=== PATIENT | female | born 1940 | race Caucasian/White ===

== ENCOUNTER 2016-11-12 04:18 | Inpatient (IN) | payer OTHER ==
--- NOTE | ~2016-11-12 | HP ---
Unit #: [id number] #: [id number] Patient: ZBIGNIEW TEJEDA [id number] [address] [address] [id number] I MR#: [id number] NAME: ZBIGNIEW TEJEDA. ROOM: 331 Age: 76 Sex: F Admission Date: 11/12/2016 : 1940 Attending Physician: Priyanka Tidwell M.D. Primary Care Physician: Lexii Garcia M.D. HISTORY AND PHYSICAL CHIEF COMPLAINT Shortness of breath. HISTORY OF PRESENT ILLNESS The patient is a 76-year-old female with a past medical history of COPD, breast cancer, hypothyroidism, hypertension, brought to the emergency room complaining of worsening shortness of breath. The patient also complains of nonproductive cough since Thursday associated with chest pressure. The patient stated that the patient had COPD from secondhand smoke and is not on any nebulizer at home. The patient also complains of subjective fevers and nausea. The patient denies any chest pain, palpitation, dizziness or abdominal pain. The patient is being admitted for COPD exacerbation. The patient was found to be hypoxic with the oxygen saturation of 88% on room air by ER physician. PAST MEDICAL HISTORY History of breast cancer, hypothyroidism, hypertension, gastroesophageal reflux disease. PAST SURGICAL HISTORY Umbilical hernia repair, left mastectomy, excision of the right breast areolar mass. SOCIAL HISTORY The patient denies history of smoking, alcohol or any illicit drug abuse. FAMILY HISTORY Reviewed and remarkable in the father of leukemia, mother of heart disease. ALLERGIES Latex. HOME MEDICATIONS 1. Synthroid. 2. Atenolol. 3. Tessalon Perles. 4. Diflucan. REVIEW OF SYSTEMS A 14-point review of systems was performed and only pertinent positive findings are described above. Remaining are negative. PHYSICAL EXAMINATION Unit #: [id number] #: [id number] Patient: ZBIGNIEW TEJEDA GENERAL APPEARANCE: The patient is lying on the bed, not in acute distress. VITAL SIGNS: Temperature 97.6. Pulse 66. Respiratory rate 16. Blood pressure 111/52. Sating 95% at room air. HEENT: Head: Atraumatic, normocephalic. Pupils equal, round and reacting to light and accommodation. Extraocular movements are intact. NECK: Supple. No JVD. LUNGS: Bilateral expiratory wheezing. HEART: Regular rate and rhythm. ABDOMEN: Soft. Positive bowel sounds. EXTREMITIES: No cyanosis. No clubbing. No pedal edema. NEUROLOGIC: Alert, awake, oriented. No gross focal motor deficit. DIAGNOSTIC STUDIES LABORATORY: Glucose 111, BUN 15, creatinine 0.7, sodium 130, potassium 3.5. It was 2.8 at admission. Chloride 98, bicarb 25, calcium 7.9, magnesium 1.5, albumin 3.2, AST 19, ALT 29, alkaline phosphatase 67. Amylase 35. BNP 89. D-dimer 274. WBC 16.3, hemoglobin 14.5, hematocrit 42.6, platelets 171, neutrophils 80.2. Flu screen is negative. IMAGING: Chest x-ray shows stable cardiomegaly with mild atelectasis in the right lung base, otherwise, no active disease. CARDIOVASCULAR: EKG shows normal sinus rhythm at a rate of 67 beats per minute, CO interval of 160, QTC of 414. ASSESSMENT AND PLAN 1. COPD exacerbation. 2. Hypokalemia. 3. Hypomagnesium. 4. Hypertension. PLAN To admit the patient to observation with telemetry. Continue with oxygen two liters and continue with the steroids, Solu-Medrol 40 mg q.8. The patient received prednisolone oral by mouth for unknown reason. Replace the electrolytes per protocol and further recommendations will follow. Dictated by Diallo Manning TD: 11/12/2016 12:25 JOB #: [id number] HISTORY AND PHYSICAL X X HISTORY AND PHYSICAL
--- NOTE | ~2016-11-12 | CT16 ---
[facility] A Service of [facility] & [facility] RADIOLOGY TEXT RESULTS PATIENT: ZBIGNIEW TEJEDA LOCATION: [facility] 225 : 42 UNIT #: [id number] AGE: [address]: Michelle Ni MD SEX: F ORDER DR: [id number] [facility] [address] [facility]. [place], [place] [address] [id number] I MR#: [id number] Acc #: [id number] NAME: ZBIGNIEW TEJEDA : 1940 SEX: F STUDY DATE/TIME: 11/14/2016 14:08 UNIT: [facility] ROOM: [facility] STUDY DESCRIPTION: CT Angio Chest for PE Attending Physician: Michelle Ni M.D. Ordering Physician: Michelle Ni M.D. Primary Care Physician: Lexii Garcia M.D. MEDICAL IMAGING REPORT This report is preliminary unless electronic signature is present EXAM CT scan of the chest with angiographic reconstructions of pulmonary artery, pulmonary embolus protocol. DATE OF EXAM 11/14/2016 INDICATION Shortness of breath and cough since November 08 with congestion. Evaluate for pulmonary embolus. TECHNIQUE The patient was given 100 mL of Isovue-370. Spiral imaging was performed through the chest and 3D reconstructions of the pulmonary arteries were generated. NOTE: This CT exam was performed with one or more of the following radiation dose reduction techniques: automatic exposure control, adjustment of mA and/or kV according to patient size, and iterative reconstruction. FINDINGS There is minimal infiltrate in the right upper lobe posteriorly, and also in the right middle lobe posteriorly, and there is some focal atelectasis in the right base. There is also some patchy infiltrate in the left base. Otherwise, the lungs are clear. The thyroid gland is normal. The aorta is normal in size and there is no dissection. Pulmonary arteries are adequately opacified and there is no CT evidence of pulmonary embolus. The visualized portions of the upper abdomen are normal, except for scarring in the right kidney. Motion affects the images through the lung bases. IMPRESSION 1. Motion degrades the images through the lung bases. No pulmonary embolus is visible. [facility] A Service of [facility] & [facility] RADIOLOGY TEXT RESULTS PATIENT: ZBIGNIEW TEJEDA LOCATION: [facility] 225- : 42 UNIT #: [id number] AGE: [address]: Michelle Ni MD SEX: F ORDER DR: 2. Faint patchy infiltrates right upper lobe posteriorly, right middle lobe laterally and posteriorly and both lower lobes with some minimal atelectasis in the right lower lobe. Dictated by... North Andres M.D. THIS IS AN ELECTRONICALLY VERIFIED REPORT North Andres M.D. at 11/15/2016 12:24 PM KAMILLE/lucy TD: 11/14/2016 22:18 JOB #: [id number] MEDICAL IMAGING REPORT COPY
--- NOTE | ~2016-11-12 | EKG ---
PATIENT: ZBIGNIEW TEJEDA UNIT #: [id number] Ventricular Rate: 67 BPM Atrial Rate: 67 BPM P-R Interval: 160 ms QRS Duration: 80 ms Q-T Interval: 392 ms QTC Calculation(Bezet): 414 ms P [place]: 50 degrees Calculated R [place]: -12 degrees Calculated T [place]: 62 degrees Diagnosis Line: Normal sinus rhythm Diagnosis Line: Normal ECG Diagnosis Line: No previous ECGs available Diagnosis Line: Confirmed by CARMELO HERNANDEZ MD ([id number]) on 11/13/2016 Diagnosis Line: 5:38:32 PM INTERPRETING MD: DAVID SANCHEZ
--- NOTE | ~2016-11-12 | CO ---
Unit #: [id number] #: [id number] Patient: ZBIGNIEW TEJEDA [id number] [facility]. [address] [place], [place] [address] [id number] I MR#: [id number] NAME: ZBIGNIEW TEJEDA ROOM: 225 Age: 76 Sex: F Admission Date: 11/12/2016 : 1940 Attending Physician: Michelle Ni M.D. Primary Care Physician: Lexii Garcia M.D. CONSULTATION REPORT HISTORY OF PRESENT ILLNESS Ms. Mueller is a 76-year-old white female with possible history of COPD, history of breast cancer status post left mastectomy, hypothyroidism, hypertension, who presented to the emergency room because of increased shortness of breath and worsening cough. She says she has been sick since 03/2016, she has received 4 courses of antibiotics with initial improvement of the course of cough and congestion, but then return of symptoms. This has been worse since 09/2016. She began to cough more over the last week and became more short of breath and presented here for admission. She denied any chest pain or palpitations. Cough has been fairly nonproductive. She is a lifelong nonsmoker, but her used to smoke heavily, although he a few years ago. Ms. Mueller has been seen by Dr. West in the past. In the emergency room when she was initially seen, her O2 saturation was 95% on room air, but in another notation it was 88%. She was given prednisone, Tussionex, and IV fluids. She was noted on exam to have frequent coughs. Her lab work was significant for normal creatinine, potassium of 2.8, magnesium of 1.5. Negative cardiac enzymes. D-dimer was 274. White count was 16,300, hematocrit was 42.6, platelet count was normal. Influenza A and B are negative. PAST MEDICAL HISTORY Breast cancer, status post left mastectomy; hypothyroidism; hypertension; gastroesophageal reflux; and some history of asthmatic bronchitis. PAST SURGICAL HISTORY Umbilical hernia repair, excision of right breast areolar mass, history of left mastectomy. ALLERGIES Latex. HOME MEDICATIONS Synthroid, atenolol, Tessalon Perles, and Diflucan. SOCIAL HISTORY Nonsmoker. No alcohol or illicit drugs. FAMILY HISTORY Father of leukemia. Mother, heart disease. REVIEW OF SYSTEMS Ten point, otherwise negative. Unit #: [id number] #: [id number] Patient: ZBIGNIEW TEJEDA PHYSICAL EXAMINATION GENERAL: White female, coughing, in no distress. VITAL SIGNS: Blood pressure is 156/91, pulse 89, respiratory rate 18, afebrile. HEENT: Normocephalic and atraumatic. Pupils are equal, round, and reactive. Sclerae nonicteric. Nasal passages patent. Posterior pharynx clear. Mucous membranes moist. NECK: Supple. Trachea midline. No cervical or supraclavicular lymphadenopathy. LUNGS: Reveal some crackles in the right base. CARDIAC: Heart sounds distant. Regular rate and rhythm. Could not appreciate murmur, rub, or gallop. ABDOMEN: Nontender. Bowel sounds present. No hepatosplenomegaly. EXTREMITIES: Without clubbing, cyanosis, or edema. NEUROLOGIC: Awake, alert, and oriented x3. Cranial nerves grossly intact. Muscle strength symmetric bilaterally. Affect calm. DIAGNOSTIC STUDIES LABORATORY RESULTS: As noted. Personally reviewed. IMAGING STUDIES: Chest CT reviewed, no pulmonary embolus, does appear to be some tree-in-bud abnormalities in the right upper lobe and some atelectasis and infiltrate in the bases. IMPRESSION 1. Acute hypoxemic respiratory failure. 2. Tree-in-bud pattern with infiltrate and atelectasis possible pneumonia. 3. Apparent possible asthma or chronic obstructive pulmonary disease. 4. Gastroesophageal reflux disease. 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 PLAN Broad-spectrum antibiotics for possible community-acquired pneumonia. Bronchodilator treatment. We will check procalcitonin level. Further recommendations pending this. Dictated by... Diallo Crowe/ozzy TD: 11/14/2016 21:33 JOB #: [id number] CONSULTATION REPORT X Lorenzo Brandt MD X CONSULTATION REPORT
--- NOTE | ~2016-11-12 | CR63 ---
[facility] A Service of [facility] & [facility] / [facility] RADIOLOGY TEXT RESULTS PATIENT: ZBIGNIEW TEJEDA LOCATION: [facility] 331- : 42 UNIT #: [id number] AGE: [address]: FADY TIDWELL MD SEX: F ORDER DR: [id number] [facility] [address] [facility] [place], [place] [address] [id number] I MR#: [id number] Acc #: [id number] NAME: ZBIGNIEW TEJEDA. : 1940 SEX: F STUDY DATE/TIME: 11/12/2016 05:06 UNIT: [facility] ROOM: [id number] STUDY DESCRIPTION: CR Chest 2 View Attending Physician: Fady Tidwell M.D. Ordering Physician: Frank George M.D. Primary Care Physician: Lexii Garcia M.D. MEDICAL IMAGING REPORT This report is preliminary unless electronic signature is present EXAM Chest x-ray, 11/12 at 05:06 hours INDICATION Shortness of air and cough for 2 months. History of hypertension. FINDINGS 2 views of the chest are compared with 06/12/2009. There is cardiomegaly. Mild atelectasis noted in the medial right base. The lungs are otherwise clear and there is no pneumothorax. IMPRESSION Stable cardiomegaly with mild atelectasis in the right lung base. Otherwise, no active disease. Dictated by... Job Chacon Jr., M.D. THIS IS AN ELECTRONICALLY VERIFIED REPORT Job Chacon Jr., M.D. at 11/12/2016 9:17 PM ZENAIDA/javier TD: 11/12/2016 10:33 JOB #: [id number] MEDICAL IMAGING REPORT COPY
--- NOTE | ~2016-11-12 | CR63 ---
[facility] A Service of [facility] & [facility] RADIOLOGY TEXT RESULTS PATIENT: ZBIGNIEW TEJEDA LOCATION: [facility] 225 : 42 UNIT #: [id number] AGE: [address]: Berry Lowery MD SEX: F ORDER DR: [id number] [facility] [address] [facility] [place] [facility] [place], [place] [address] [id number] I MR#: [id number] Acc #: [id number] NAME: ZBIGNIEW TEJEDA : 1940 SEX: F STUDY DATE/TIME: 11/17/2016 12:21 UNIT: [facility] ROOM: [facility] STUDY DESCRIPTION: CR Chest 2 View Attending Physician: Berry Lowery M.D. Primary Care Physician: Lexii Garcia M.D. MEDICAL IMAGING REPORT This report is preliminary unless electronic signature is present EXAM PA and lateral chest INDICATION 76-year-old female with history of shortness of breath since Thursday. COMPARISON Comparison with 11/12/2016. FINDINGS The lungs are well-expanded. There is no acute infiltrate. Heart size stable. Degenerative changes thoracic spine. IMPRESSION No active disease. Dictated by... Corby Vazquez M.D. THIS IS AN ELECTRONICALLY VERIFIED REPORT Corby Vazquez M.D. at 11/17/2016 4:57 PM JUSTIN/melina TD: 11/17/2016 14:51 JOB #: [id number] MEDICAL IMAGING REPORT COPY
--- NOTE | ~2016-11-12 | DS ---
Unit #: [id number] #: [id number] Patient: ZBIGNIEW TEJEDA [id number] [address] [address] [id number] I MR#: [id number] NAME: ZBIGNIEW TEJEDA. ROOM: 225 Age: 76 Sex: F Admission Date: 11/12/2016 : 1940 Discharge Date: 11/18/2016 Attending Physician: Berry Lowery M.D. Primary Care Physician: Lexii Garcia M.D. DISCHARGE SUMMARY ADDENDUM This is Juan CarlosIlan Garcia PA-C dictating for Dr. Berry Lowery. PRIMARY CARE PHYSICIAN Lexii Garcia M.D. DISCHARGE DIAGNOSES 1. Acute hypoxemic respiratory failure. 2. Acute chronic obstructive pulmonary disease exacerbation. 3. Influenza type A. 4. Bilateral community-acquired pneumonia, treating for presumed gram-negative zuly. 5. Hyperglycemia due to steroid induced. 6. Discoid lupus. 7. Gastroesophageal reflux disease. 8. Hypocalcemia. PROCEDURES None. CONSULTANTS Lorenzo Brandt M.D. of Pulmonary. DIAGNOSTIC STUDIES IMAGING STUDIES: Consist of a chest x-ray, 2 view, on 11/12/2016, impression, stable cardiomegaly with mild atelectasis in the right lung base, otherwise no active disease. CT angio of chest with impression: 1. images through the lung bases. No pulmonary embolus is seen. 2. Faint patchy infiltrates in right upper lobe posteriorly, right middle lobe laterally, posteriorly, and both lower lobe with some minimal atelectasis in the right lower lobe. Chest 2-view on 11/17/2016, no active disease. LABORATORY RESULTS: On the day prior to discharge, glucose is 144, BUN 28, creatinine 0.7, sodium 140, potassium 4.0, chloride 106, CO2 of 25, calcium 8.3, magnesium 2.0. When we assess the patient's hemoglobin A1c, it was 5.6. When assessed TSH, it was 0.14, T4 was 1.17. CBC with WBC of 14.1, RBC of 4.56, hemoglobin 13.8, hematocrit 41.8, MCV is 91.5, MCH is 30.2, MCHC 33.0, RDW 14.2, platelets 245, MPV is 9.0. Microbiology, we did not assess any. Unit #: [id number] #: [id number] Patient: ZBIGNIEW TEJEDA [facility] COURSE Since the time Dr. Ni had dictated her transfer care, the patient had continued to receive Combivent nebulized that consist of both albuterol and ipratropium with no reaction as states in her transfer care that the patient is anaphylactic to both albuterol and Advair, so she is actually tolerating the albuterol and ipratropium combination very well. Since then she continues to have this persistent generalized weakness and reduce energy with activity. The patient was re-evaluated by physical therapy who found the patient had ambulated well with a rolling walker and I have recommended that she will be discharged home with the assistance of a rolling walker. The patient had maintained her oxygen saturation at or above 94% during the entire physical therapy evaluation. The patient still continues to cough and still continues to have generalized weakness, but she is able to ambulate and participate more in therapy. I believe that she will continue to improve. We did assess respiratory panel later on that came back flu positive. I believe, generalized weakness is due to the influenza A, but as this has been greater than 72 hours and was assessed. Tamiflu was not needed at this time as it would not improve her course of influenza duration. At this time, the patient is no longer hypoxic, not needing any further oxygen. I believe that her symptoms of coughing and the generalized weakness will improve as she continues to ambulate and resume her normal activities at home. I did talk to her about her significant COPD disease state and how she would have to conserve energy with activity. She voiced understanding. There was some concern that the patient had dysphagia. She was seen by speech therapy and had video swallow study, which revealed no aspiration. Therefore, she will be continued on her regular diet. I believe that her symptoms are more acid reflux in nature as she tells me that she feels nauseous really in the morning and after she has had a hot beverage she would feel better early in the morning where she will be recommended that she continue with Protonix during this hospitalization. DISCHARGE CONDITION Stable. DISCHARGE INSTRUCTIONS To follow up with primary care physician within 1 to 2 weeks. ACTIVITIES Resume activities as was prior to hospitalization with ambulating everyday as tolerated. We spoke about energy conservation with chronic COPD disease state. DIET To resume heart healthy diet. DISCHARGE MEDICATIONS Include albuterol nebulized q.i.d. as needed for shortness of breath and wheezing. Again even though they stated before that she had anaphylactic reaction to albuterol, she has been tolerating the albuterol nebulizer during this hospitalization. Prednisone 40 mg orally daily for the next 2 days, 30 mg orally daily for the next 2 days, 20 mg orally for the next 2 days, 10 mg orally for the next 2 days. Tessalon Perles she is going to have 200 mg every 8 hours as needed for coughing and she may also have Robitussin 5 mL every 8 hours as needed for coughing, which she can get [id number]. She is going to have Norvasc 2.5 mg orally daily and prescription was given. She has been hospitalized for a week and had completed a course of antibiotics for presumed gram-negative zuly, Unit #: [id number] #: [id number] Patient: ZBIGNIEW TEJEDA community acquired pneumonia. Therefore, no further antibiotics needed. Protonix 40 mg orally daily; calcium plus D 1 tablet orally b.i.d., which she can get [id number]; levothyroxine 100 mcg orally daily, Symbicort 160 mcg 2 puffs inhaled b.i.d. Synthroid and as mentioned TSH was slightly depressed and that free T4 was normal, I suggest that she follow up with her family doctor to have a repeat blood workup within 4 to 6 weeks to reassess TSH and free T4. Dictated by... Aurora Garcia PA-C for Diallo Hendrix TD: 11/20/2016 00:41 JOB #: [id number] DISCHARGE SUMMARY X X DISCHARGE SUMMARY
--- NOTE | ~2016-11-12 | TOC ---
Unit #: [id number] #: [id number] Patient: ZBIGNIEW TEJEDA [id number] [address] [address] [id number] I MR#: [id number] NAME: ZBIGNIEW TEJEDA ROOM: 225 Age: 76 Sex: F Admission Date: 11/12/2016 : 1940 Attending Physician: Michelle Ni M.D. Primary Care Physician: Lexii Garcia M.D. TRANSFER OF CARE SUMMARY PRINCIPAL DIAGNOSES 1. Acute hypoxic respiratory failure. 2. Bilateral community-acquired pneumonia. 3. Acute bronchospasm versus exacerbation of chronic obstructive pulmonary disease. 4. Chronic bronchitis. 5. Steroid-induced hyperglycemia: Hemoglobin A1c 5.6. 6. Gastroesophageal reflux disease. 7. Steroid-induced leukocytosis. 8. Hypocalcemia. 9. Discoid lupus. 10. Hypothyroidism. 11. Hypertension. 12. Obesity. 13. Mild protein malnutrition. CONSULTANTS Dr. Dawrin Brandt - Pulmonology. PROCEDURES 1. Chest x-ray on November 12, 2016, with cardiomegaly and atelectasis to the right lung base. 2. CT angiogram of the chest on November 14, 2016, which was negative for pulmonary embolism. Patchy infiltrates in the right upper lobe, right middle lobe and bilateral lower lobes noted. 3. Two dimensional echocardiogram which is pending. CLINICAL HISTORY/HOSPITAL COURSE Ms. Tejeda is a nice 76-year-old female who presents to the emergency department with shortness of breath. The patient was found to be hypoxic in the emergency department. Chest x-ray was initially unremarkable. Patient was subsequently admitted. The following morning, patient still remained hypoxic and had significant wheezing. She was placed on IV steroids, empiric antibiotics. Unfortunately, she continued to have significant shortness of breath with both activity and rest. She underwent CT angiogram of the chest revealing pneumonia. Pulmonology was consulted. The patient is currently being maintained on antibiotics in addition to IV steroids and is fully making some improvement. The patient was also found to have steroid-induced hyperglycemia with a stable hemoglobin A1c and some steroid-induced leukocytosis which can be monitored intermittently. Unit #: [id number] #: [id number] Patient: ZBIGNIEW TEJEDA The patient does endorse chronic cough for the last eight months indicative of some underlying chronic bronchitis. However, she has had anaphylaxis to both albuterol and Advair. Further treatment to be determined by pulmonology. The patient also had some mild hypocalcemia but this has corrected with oral supplementation. The patient has been seen by physical therapy and is felt to be at her baseline. Will not require rehab upon discharge. Further hospital course to be dictated as an addendum. Dictated by... Michelle Ni M.D. JESSICA/kya TD: 11/17/2016 07:55 JOB #: [id number] TRANSFER OF CARE SUMMARY X Michelle Ni MD X TRANSFER OF CARE SUMMARY
[~2016-11-12 04:18] MED LIST: ADVAIR 2501 DISK W/D PO; ALBUTEROL ATROVENT NEB; ALPRAZOLAM PO; ATENOLOL; ATENOLOL PO; ATENOLOL50 MG PO; BENADRYL25 M1 PO; BLACK CHERRY PO; BUSPIRONE HCL7.5 MG PO; CIPRO PO; HYDROCODON-ACE1 EAC9 PO; KAOPECTATE262 MG/15 PO; LEVOTHYROXINE100 MCG PO; LEXAPRO PO; LORTAB 7.5-5001 TAB PO; NILSTAT PO; OMEPRAZOLE20 M1 PO; PHENERGAN PO; PREDNISONE PO; PRILOSEC PO; PROTONIX; PYRIDIUM PO; SYNTHROID; SYNTHROID PO; VICODIN PO; VIT E PO; VITAMIN C PO; VITAMIN D 3 PO
[2016-11-12 04:47] LABS: BASOPHIL# 0.1 X10e3 (0-0.3); BASOPHIL% 0.6 % (0-2.5); DIFF IND YES; HEMATOCRIT 42.6 % (35.0-45.0); HEMOGLOBIN 14.5 gm/dL (12.0-16.0); LYMPHOCYTE# 2.2 X10e3 (1.0-3.5); LYMPHOCYTE% 13.3 % (17.0-45.0); MEAN CELL VOLUME 89.9 FL (83-96); MEAN CORPUSCULAR HEMOGLOBIN 30.6 PG (28-34); MEAN PLATELET VOLUME 9.1 FL (6.5-11.5); MONOCYTE% 5.9 % (3.0-12.0); NEUTROPHIL% 80.2 % (40-75); PLATELET COUNT 171 X10e3 (140-420); RED BLOOD COUNT 4.74 X10e (3.90-5.30); RED CELL DISTRIBUTION WIDTH 13.8 % (11.0-15.5); WHITE BLOOD COUNT 16.3 X10e3 (4.0-10.5)
[2016-11-12 05:06] LABS: PLATELET ESTIMATE DECREASED (NORMAL); RBC NORMAL YES
[2016-11-12 05:24] LABS: POC - CKMB <1.0 ng/mL (0.0-7.9); POC - TROPONIN <0.05 ng/mL (<=0.05)
[2016-11-12 05:50] LABS: ALBUMIN SERUM 3.2 g/dL (3.5-5.0); ALKALINE PHOSPHATASE 67 U/L (32-92); ALT (SGPT) 29 U/L (10-40); AST (SGOT) 19 U/L (10-42); BILIRUBIN, DIRECT 0.1 mg/dL (0.0-0.2); BILIRUBIN,INDIRECT 0.6 mg/dL (0.0-0.9); BILIRUBIN,TOTAL 0.7 mg/dL (0.2-2.0); BLOOD UREA NITROGEN 15 mg/dL (9-23); BUN/CREATININE RATIO 21.42; CALCIUM SERUM 7.9 mg/dL (8.4-10.2); CARBON DIOXIDE 25 mmol/L (22-31); CHLORIDE 98 mmol/L (100-111); CREATININE SERUM 0.7 mg/dL (0.6-1.4); GLOM FILT RATE Estimated ABOVE60 mL/min (>60); GLUCOSE FASTING 111 mg/dL (70-110); PROTEIN TOTAL SERUM 6.5 g/dL (6.0-8.3); SODIUM 130 mmol/L (135-145)
[2016-11-12 05:51] LABS: POTASSIUM 2.8 mmol/L (3.5-5.1)
[2016-11-12 07:07] LABS: POC - CKMB <1.0 ng/mL (0.0-7.9); POC - TROPONIN <0.05 ng/mL (<=0.05)
[2016-11-12 07:26] LABS: INFLUENZA A NEG (NEG); INFLUENZA B NEG (NEG)
[2016-11-12] MEDS ORDERED: ATENOLOL50 MG PO (09:49)
[2016-11-12] MEDS ORDERED: SYNTHROID PO (09:49)
[2016-11-12] MEDS ORDERED: BENZONATATE PO (09:51)
[2016-11-12] MEDS ORDERED: FLUCONAZOLE200 MG PO (09:52)
[2016-11-13 06:03] LABS: HEMATOCRIT 41.5 % (35.0-45.0); HEMOGLOBIN 13.9 gm/dL (12.0-16.0); MEAN CORPUSCULAR HEMOGLOBIN 30.8 PG (28-34); MEAN CORPUSCULAR HGB CONC 33.5 g/dL (30-36); MEAN PLATELET VOLUME 9.5 FL (6.5-11.5); RED BLOOD COUNT 4.51 X10e (3.90-5.30); RED CELL DISTRIBUTION WIDTH 14.3 % (11.0-15.5); WHITE BLOOD COUNT 15.3 X10e3 (4.0-10.5)
[2016-11-13 06:18] LABS: BLOOD UREA NITROGEN 20 mg/dL (9-23); BUN/CREATININE RATIO 28.57; CALCIUM SERUM 8.5 mg/dL (8.4-10.2); CARBON DIOXIDE 24 mmol/L (22-31); CHLORIDE 107 mmol/L (100-111); CREATININE SERUM 0.7 mg/dL (0.6-1.4); GLOM FILT RATE Estimated ABOVE60 mL/min (>60); GLUCOSE FASTING 136 mg/dL (70-110); POTASSIUM 4.4 mmol/L (3.5-5.1); SODIUM 139 mmol/L (135-145)
[2016-11-13 13:51] LABS: FREE T3 2.1 pg/mL (2.5-3.9)
[2016-11-13 13:52] LABS: FREE THYROXIN (T4) 1.17 ng/dL (0.58-1.64)
[2016-11-14 05:43] LABS: HEMATOCRIT 41.1 % (35.0-45.0); HEMOGLOBIN 13.5 gm/dL (12.0-16.0); MEAN CELL VOLUME 91.7 FL (83-96); MEAN CORPUSCULAR HEMOGLOBIN 30.2 PG (28-34); MEAN PLATELET VOLUME 9.9 FL (6.5-11.5); RED BLOOD COUNT 4.48 X10e (3.90-5.30); RED CELL DISTRIBUTION WIDTH 14.3 % (11.0-15.5); WHITE BLOOD COUNT 15.4 X10e3 (4.0-10.5)
[2016-11-14 06:13] LABS: BLOOD UREA NITROGEN 19 mg/dL (9-23); BUN/CREATININE RATIO 31.66; CALCIUM SERUM 7.8 mg/dL (8.4-10.2); CARBON DIOXIDE 25 mmol/L (22-31); CHLORIDE 107 mmol/L (100-111); CREATININE SERUM 0.6 mg/dL (0.6-1.4); GLOM FILT RATE Estimated ABOVE60 mL/min (>60); GLUCOSE FASTING 125 mg/dL (70-110); MAGNESIUM 2.1 mg/dL (1.6-3.0); POTASSIUM 4.4 mmol/L (3.5-5.1); SODIUM 134 mmol/L (135-145)
[2016-11-15 05:59] LABS: HEMATOCRIT 40.9 % (35.0-45.0); HEMOGLOBIN 13.5 gm/dL (12.0-16.0); MEAN CELL VOLUME 91.4 FL (83-96); MEAN CORPUSCULAR HEMOGLOBIN 30.3 PG (28-34); MEAN CORPUSCULAR HGB CONC 33.1 g/dL (30-36); MEAN PLATELET VOLUME 9.6 FL (6.5-11.5); RED BLOOD COUNT 4.47 X10e (3.90-5.30); RED CELL DISTRIBUTION WIDTH 14.5 % (11.0-15.5); WHITE BLOOD COUNT 16.8 X10e3 (4.0-10.5)
[2016-11-15 06:23] LABS: BLOOD UREA NITROGEN 21 mg/dL (9-23); CALCIUM SERUM 8.4 mg/dL (8.4-10.2); CARBON DIOXIDE 26 mmol/L (22-31); CHLORIDE 105 mmol/L (100-111); CREATININE SERUM 0.7 mg/dL (0.6-1.4); GLOM FILT RATE Estimated ABOVE60 mL/min (>60); GLUCOSE FASTING 150 mg/dL (70-110); MAGNESIUM 1.9 mg/dL (1.6-3.0); POTASSIUM 4.1 mmol/L (3.5-5.1); SODIUM 141 mmol/L (135-145)
[2016-11-16 08:42] LABS: MAGNESIUM 2.2 mg/dL (1.6-3.0)
[2016-11-17 09:10] LABS: HEMATOCRIT 41.8 % (35.0-45.0); HEMOGLOBIN 13.8 gm/dL (12.0-16.0); MEAN CELL VOLUME 91.5 FL (83-96); MEAN CORPUSCULAR HEMOGLOBIN 30.2 PG (28-34); RED BLOOD COUNT 4.56 X10e (3.90-5.30); RED CELL DISTRIBUTION WIDTH 14.2 % (11.0-15.5); WHITE BLOOD COUNT 14.1 X10e3 (4.0-10.5)
[2016-11-17 09:46] LABS: BLOOD UREA NITROGEN 28 mg/dL (9-23); CALCIUM SERUM 8.3 mg/dL (8.4-10.2); CARBON DIOXIDE 25 mmol/L (22-31); CHLORIDE 106 mmol/L (100-111); CREATININE SERUM 0.7 mg/dL (0.6-1.4); GLOM FILT RATE Estimated ABOVE60 mL/min (>60); GLUCOSE FASTING 144 mg/dL (70-110); SODIUM 140 mmol/L (135-145)
[2016-11-18] MEDS ORDERED: PROTONIX PO (13:28)
[2016-11-18] MEDS ORDERED: CEFTIN PO (13:29)
[2016-11-18] MEDS ORDERED: PREDNISONE10 MG PO (13:30)
[2016-11-18] MEDS ORDERED: ALBUTEROL17 GM INH (13:30)
[2016-11-18] MEDS ORDERED: SPIRIVA18 MCG INH (13:31)
[2016-11-18] MEDS ORDERED: ALBUTEROL0.63 MG/3 INH (13:32)
[2016-11-18] MEDS ORDERED: BENZONATATE PO (13:32)
[2016-11-18] MEDS ORDERED: SYMBICORT INH (13:33)
[2016-11-18] MEDS ORDERED: NORVASC2.5 MG PO (13:33)
[2016-11-18] MEDS ORDERED: ROBITUSSIN A-C S5 ML PO (13:34)
[2016-11-18] MEDS ORDERED: OS-CAL 500 + D500 MG PO (14:29)
== END 2016-11-18 14:54 | disposition home or self-care (01) | DRG 189 ==
LOC: CED 04:18 → CEDOF 10:00 → C3A PCU 11:39 → C2A 11-13 17:21
PROVIDERS: Emergency Medicine; Family Medicine; Internal Medicine
PROC: B24BZZZ Ultrasonography of Heart with Aorta (ICD-10-PCS; principal; 2016-11-14)
DX: J96.01 Acute respiratory failure with hypoxia (principal); J10.00 Influenza due to other identified influenza virus with unspecified type of pneumonia; J44.0 Chronic obstructive pulmonary disease with (acute) lower respiratory infection; J44.1 Chronic obstructive pulmonary disease with (acute) exacerbation; E09.65 Drug or chemical induced diabetes mellitus with hyperglycemia; R13.10 Dysphagia, unspecified; J18.9 Pneumonia, unspecified organism; E87.6 Hypokalemia; E83.42 Hypomagnesemia; I10 Essential (primary) hypertension; E03.9 Hypothyroidism, unspecified; K21.9 Gastro-esophageal reflux disease without esophagitis; T38.0X5A Adverse effect of glucocorticoids and synthetic analogues, initial encounter; Y92.9 Unspecified place or not applicable; E66.9 Obesity, unspecified; Z68.35 Body mass index [BMI] 35.0-35.9, adult; L93.0 Discoid lupus erythematosus; Z90.12 Acquired absence of left breast and nipple; Z77.22 Contact with and (suspected) exposure to environmental tobacco smoke (acute) (chronic); Z85.3 Personal history of malignant neoplasm of breast; Z80.6 Family history of leukemia; Z82.49 Family history of ischemic heart disease and other diseases of the circulatory system
CPT/HCPCS: 36415; 71020; 71275; 74230; 80048; 80076; 82308; 82553; 82947; 83036; 83735; 83880; 84132; 84439; 84443; 84481; 84484; 85025; 85027; 85379; 87633; 87804; 92611; 93005; 93306; 94640; 94760; 96361; 96365; 96375; 97161; 97162; 99285; G8978-GP; G8979-GP; G8980-GP; G8996-GN; G8997-GN; G8998-GN; J0456; J0696; J1650; J1885; J2405; J2920; J2930; J3475; Q9967

== ENCOUNTER → 2017-01-15 | Outpatient (CLI) | payer OTHER ==
[~2017-01-15] MED LIST changes: +ALBUTEROL0.63 MG/3 INH; +ALBUTEROL17 GM INH; +BENZONATATE PO; +CEFTIN PO; +FLUCONAZOLE200 MG PO; +NORVASC2.5 MG PO; +OS-CAL 500 + D500 MG PO; +PREDNISONE10 MG PO; +PROTONIX PO; +ROBITUSSIN A-C S5 ML PO; +SPIRIVA18 MCG INH; +SYMBICORT INH
--- NOTE | ~2017-01-15 | MY10 ---
[facility] A Service of [facility] RADIOLOGY TEXT RESULTS PATIENT: ZBIGNIEW TEJEDA LOCATION: [facility] : 44 UNIT #: [id number] AGE: [address]: Lexii Garcia MD SEX: F ORDER DR: [id number] [facility] [address] [place], [place] [address] [id number] O MR#: [id number] Acc #: [id number] NAME: ZBIGNIEW TEJEDA : 1940 SEX: F STUDY DATE/TIME: 01/15/2017 15:49 UNIT: [facility] ROOM: STUDY DESCRIPTION: MY Mammogram Screen Uni Dig Rt Attending Physician: Lexii Garcia M.D. Ordering Physician: Lexii Garcia M.D. Primary Care Physician: Lexii Garcia M.D. MEDICAL IMAGING REPORT This report is preliminary unless electronic signature is present EXAM Digital screening mammogram, 01/15/2017 HISTORY 76-year-old woman previous left mastectomy 1989. Adjuvant chemotherapy. Annual screening. COMPARISON Mammograms date to 02/17/2006 with most recent screening comparison 10/04/2013. FINDINGS Digital imaging of the right breast was completed utilizing screening protocol. Mole markers were again placed. Surgical scar marker is placed lower inner quadrant as well. Breast parenchyma remains dense given the patient's age. Subareolar duct prominence is noted and stable. Occasional punctate calcification with benign characteristics present. I see no breast mass. There are no interval occurring microcalcifications and I see no architectural distortion. IMPRESSION Stable benign unilateral right mammogram. Status post left mastectomy. Annual screening recommended. Patients over the age of 40 are entered into a reminder system with target due date for the next mammogram. A result letter will also be sent to the patient. BIRADS: 2 Benign Finding Dictated by... Meliton Farnsworth M.D. [facility] A Service of [facility] RADIOLOGY TEXT RESULTS PATIENT: ZBIGNIEW TEJEDA LOCATION: [facility] : 44 UNIT #: [id number] AGE: [address]: Lexii Garcia MD SEX: F ORDER DR: THIS IS AN ELECTRONICALLY VERIFIED REPORT Meliton Farnsworth M.D. at 01/16/2017 9:51 AM Primitivo TD: 01/16/2017 08:52 JOB #: [id number] MEDICAL IMAGING REPORT Page 1 of 1 COPY
== END | disposition home or self-care (01) ==
LOC: CWCC 15:33
DX: Z12.31 Encounter for screening mammogram for malignant neoplasm of breast (principal); Z85.3 Personal history of malignant neoplasm of breast; Z90.12 Acquired absence of left breast and nipple
CPT/HCPCS: G0202